=== PATIENT | male | born 1995 | race Two or more races ===

== ENCOUNTER 2025-06-09 15:58 | Emergency (ER) | payer OTHER ==
[~2025-06-09] VITALS: Ht 170.2 cm; Wt 79.4 kg
[2025-06-09] MEDS ORDERED: TESTIM5 GM IM (16:11)
[2025-06-09] MEDS ORDERED: ACETAMINOPHEN 500 MG GEL..CAP PO ONE (16:30)
[2025-06-09 19:28] LABS: BASO % 0.3 % (0.1-1.2); EOS # 0.02 (0.04-0.54); EOS % 0.3 % (0.7-7.0); LYMPH # 0.83 (1.18-3.74); LYMPH % 10.4 % (19.3-53.1); MEAN PLATELET VOLUME 9.80 fl (9.4-12.4); MONO # 1.01 (0.24-0.82); NEUT # 6.07 (1.56-6.13); NEUT % 76.2 % (34.0-71.1); RED CELL DISTRIBUTION WIDTH 12.4 % (11.6-14.4)
[2025-06-09 19:34] LABS: MONO % 12.7 % (4.7-12.5)
[2025-06-09 20:05] LABS: ALT/SGPT 35.0 U/L (12-78); AST/SGOT 35.0 U/L (15-37); BILIRUBIN TOTAL 0.32 mg/dL (0.3-1.2); BUN CREA RATIO 16.0 (7.0-25.0); CREATININE SERUM 1.19 mg/dL (0.70-1.30); GFR 71.3; GLOBULINA 3.0 G/DL (2.4-3.5); GLUCOSE FASTING 99.0 mg/dL (65-100); OSMOLALITY SERUM 284.0 MOSM/KG (275-295)
[2025-06-09 21:36] LABS: COVID-19 AG NEGATIVE (NEGATIVE)
[2025-06-09] MEDS ORDERED: ACETAMINOPHEN500 M1 PO (22:07)
[2025-06-09] MEDS ORDERED: GILTUSS COUGH-118 M1 PO (22:07)
[2025-06-09] MEDS ORDERED: OSEL75CA PO (22:07)
[2025-06-09] MEDS ORDERED: OSELTAMIVIR PHOSPHATE 75 MG CAPSULE PO ONE (22:15)
== END 2025-06-09 22:33 | disposition home or self-care (01) ==
LOC: ER 15:59 → EDSEX 15:59 → ER 17:21
PROVIDERS: Preventive Medicine Public Health & General Preventive Medicine
DX: J10.1 Influenza due to other identified influenza virus with other respiratory manifestations (principal); Z20.822 Contact with and (suspected) exposure to COVID-19